=== PATIENT | female | born 1990 | race Caucasian/White ===

== ENCOUNTER 2018-09-25 07:35 | Emergency (ER) | payer OTHER ==
[2018-09-25 07:42] VITALS: Ht 157.5 cm
[2018-09-25 09:21] LABS: UA SPECIFIC GRAVITY 1.025 (1.005-1.035); microscopic required? YES; urine erythrocyte TRACE (NEGATIVE)
[2018-09-25 10:43] VITALS: BP 114/79
== END 2018-09-25 10:43 | disposition home or self-care (01) ==
LOC: ED 07:35
PROVIDERS: Emergency Medicine
DX: N39.0 Urinary tract infection, site not specified (principal)

== ENCOUNTER 2018-11-25 00:57 | Emergency (ER) | payer OTHER ==
[~2018-11-25] VITALS: Ht 157.5 cm; Wt 72.6 kg
[2018-11-25 01:06] VITALS: BP 123/83; Ht 157.5 cm; Wt 72.6 kg
== END 2018-11-25 01:54 | disposition home or self-care (01) ==
LOC: ED 00:57
DX: N39.0 Urinary tract infection, site not specified (principal)

== ENCOUNTER 2018-12-21 21:48 | Emergency (ER) | payer OTHER ==
[~2018-12-21] VITALS: Ht 157.5 cm; Wt 68.0 kg
[2018-12-21 22:10] VITALS: Ht 157.5 cm; Wt 68.0 kg
[2018-12-22 03:00] VITALS: BP 125/75
== END 2018-12-22 03:00 | disposition home or self-care (01) ==
LOC: ED 21:48
DX: J04.0 Acute laryngitis (principal)
CPT/HCPCS: J1100